=== PATIENT | female | born 1935 | race Caucasian/White ===

== ENCOUNTER 2017-05-20 12:27 | Emergency (ER) | payer MEDICARE | END 2017-05-20 15:40 | disposition home or self-care (01) | LOC: D.ER 12:27 | DX: S42.202A Unspecified fracture of upper end of left humerus, initial encounter for closed fracture (principal); W10.9XXA Fall (on) (from) unspecified stairs and steps, initial encounter; Y93.89 Activity, other specified; Y92.019 Unspecified place in single-family (private) house as the place of occurrence of the external cause; I10 Essential (primary) hypertension ==

== ENCOUNTER 2017-05-27 18:09 | Inpatient (IN) | payer MEDICARE ==
--- NOTE | ~2017-05-27 | OP ---
PATIENT NAME: NICOLE PEREYRA MEDICAL RECORD: [id number] :37 LOCATION:[facility][id number] ADMISSION DATE:05/27/17 SURGEON: CELESTINE GUAJARDO MD DATE OF OPERATION: 05/31/2017 PREOPERATIVE DIAGNOSIS: Intertrochanteric hip fracture of the right hip. POSTOPERATIVE DIAGNOSIS: Intertrochanteric hip fracture of the right hip. PROCEDURE: Gamma nail of the right hip with cephalomedullary fixation. SURGEON: Celestine Guajardo MD ANESTHESIA: General. INTRAOPERATIVE COMPLICATIONS: None. SUMMARY OF PATHOLOGIC FINDINGS: The patient did have a substantial fracture with transverse obliquity of the greater trochanter. OPERATIVE SUMMARY IN DETAIL: After obtaining the appropriate preoperative orthopedic surgery consent as well as anesthetic consultation, evaluation, and clearance, the patient was brought to the operating room and placed on the table in supine position. After general laryngeal mask airway was administered, the patient was gently placed on the fracture table. The right leg was placed in traction boot. Left leg was placed in the well leg alva. She was held firmly to the operating table using the belt and strap system. Under direct fluoroscopy, the hip was reduced. The hip was then prepped and draped in a routine sterile fashion. Incision was made at the tip of the greater trochanter. Awl was introduced for passage of the ball-tipped guidewire. Proximal reaming was then followed by nail insertion to the appropriate level. The guidepin was then placed in low-center position on AP and lateral planes. Under fluoroscopy, appropriate reaming was then followed by insertion of the compression screw. Screw was placed within 5 mm of the articular surface. The locking screw was deployed and then retracted two and a half times to allow for compression. The fracture was then compressed using the compression device. Following this, distal interlocking was done under fluoroscopic guidance. After distal interlocking was done, final radiographs were taken in AP and lateral planes and submitted for radiologist review. Wounds were copiously irrigated and closed in usual fashion. The patient was awakened and taken to recovery room in stable condition. All final needle and sponge counts were correct. TRANSINT:[id number] Voice Confirmation ID: [id number] DOCUMENT ID: [id number] CELESTINE GUAJARDO MD at 0826 CC: [id number] DICTATION DATE: 06/03/17 1250 RN TRANSITION: 06/03/17 192 DIS IN 06/01/17 [facility] [address] [facility]
[2017-05-27 19:00] LABS: BASOPHILS 0.1 % (0-2); EOSINOPHILS 1.5 % (0-7); HEMATOCRIT 43.5 % (36.0-48.0); HEMOGLOBIN 13.9 g/dL (12-16); IMMATURE GRANULOCYTES 0.3 % (0-5); LYMPHOCYTES 16.1 % (15-50); MCH 28.2 pg (26.0-34.0); MCV 88.2 fL (80.0-100.0); MEAN PLATELET VOLUME 9.1 fL (7.4-10.4); MONOCYTES 9.6 % (2-11); NEUTROPHILS 72.4 % (40-80); PLATELET COUNT 219 10x3/uL (130-400); RBC 4.93 10x6/uL (4.00-5.40); RDW 13.9 % (11.5-14.5); WBC 8.7 10x3/uL (4.8-10.8)
[2017-05-27 19:01] LABS: APPEARANCE HAZY (CLEAR); BILIRUBIN NEGATIVE (NEGATIVE); COLOR DK YELLOW (YELLOW); GLUCOSE NEGATIVE (NEGATIVE); KETONE NEGATIVE (NEGATIVE); NITRITE POSITIVE (NEGATIVE); PROTEIN TRACE mg/dL (NEGATIVE)
[2017-05-27 19:10] LABS: AMORPHOUS SEDIMENT <1+ /lpf (NONE SEEN); BACTERIA MANY /hpf (NONE SEEN); EPITHELIAL CELLS 0-5 /hpf (0-5); RED CELLS - URINE 0-5 /hpf (0-5); WHITE CELLS - URINE 0-5 /hpf (0-5)
[2017-05-27 19:15] LABS: INR 0.89 (0.85-1.17); PROTIME 11.7 SECONDS (11.6-15.0)
[2017-05-27 19:25] LABS: ALBUMIN 3.3 g/dL (3.4-5.0); ANION GAP 15.5 mmol/L (8-16); BILIRUBIN - TOTAL 0.5 mg/dL (0.2-1.3); CARBON DIOXIDE 26.1 mmol/L (21.0-32.0); CREATININE - SERUM 1.1 mg/dL (0.6-1.3); MAGNESIUM - SERUM 2.3 mg/dL (1.8-2.4); POTASSIUM - SERUM 4.6 mmol/L (3.5-5.1); PROTEIN - SERUM 7.1 g/dL (6.4-8.2)
[2017-05-27 23:08] VITALS: BP 124/65; BMI 27.5
[2017-05-28 00:40] VITALS: BP 124/65
[2017-05-28 04:25] LABS: BASOPHILS 0.1 % (0-2); EOSINOPHILS 0.1 % (0-7); HEMATOCRIT 39.6 % (36.0-48.0); HEMOGLOBIN 12.4 g/dL (12-16); IMMATURE GRANULOCYTES 0.5 % (0-5); LYMPHOCYTES 10.5 % (15-50); MCH 28.1 pg (26.0-34.0); MCHC 31.3 g/dL (31.0-37.0); MCV 89.6 fL (80.0-100.0); MEAN PLATELET VOLUME 9.3 fL (7.4-10.4); MONOCYTES 7.6 % (2-11); NEUTROPHILS 81.2 % (40-80); PLATELET COUNT 231 10x3/uL (130-400); RBC 4.42 10x6/uL (4.00-5.40)
[2017-05-28 04:27] LABS: WBC 11.1 10x3/uL (4.8-10.8)
[2017-05-28 04:50] VITALS: BP 162/83
[2017-05-28 04:50] LABS: ALBUMIN 3.1 g/dL (3.4-5.0); ANION GAP 15.1 mmol/L (8-16); BILIRUBIN - TOTAL 0.4 mg/dL (0.2-1.3); CALCIUM 8.2 mg/dL (8.5-10.1); CARBON DIOXIDE 24.6 mmol/L (21.0-32.0); POTASSIUM - SERUM 4.7 mmol/L (3.5-5.1)
[2017-05-28 04:54] LABS: CREATININE - SERUM 0.8 mg/dL (0.6-1.3)
[2017-05-28 08:19] VITALS: BP 130/78; BP 173/64
[2017-05-28] MEDS ORDERED: MIDAMOR5 MG PO (09:40)
[2017-05-28] MEDS ORDERED: PRINIVIL20 MG (09:41)
[2017-05-28] MEDS ORDERED: NORVASC5 MG PO (09:42)
[2017-05-28 12:54] VITALS: BP 137/95
[2017-05-28 14:09] VITALS: BMI 27.4
[2017-05-28 16:31] VITALS: BMI 27.4
[2017-05-28 18:42] VITALS: BP 171/91
[2017-05-28 20:00] VITALS: BP 163/87
[2017-05-29] VITALS (8 sets, daily range): BP systolic 138–198; BP diastolic 56–101
[2017-05-29 06:11] LABS: HEMATOCRIT 32.2 % (36.0-48.0); HEMOGLOBIN 10.1 g/dL (12-16); MCH 28.1 pg (26.0-34.0); MCHC 31.4 g/dL (31.0-37.0); MCV 89.7 fL (80.0-100.0); MEAN PLATELET VOLUME 10.2 fL (7.4-10.4); RBC 3.59 10x6/uL (4.00-5.40); RDW 13.9 % (11.5-14.5)
[2017-05-29 06:14] LABS: WBC 8.2 10x3/uL (4.8-10.8)
[2017-05-30 04:00] VITALS: BP 147/71
[2017-05-30 04:44] LABS: HEMATOCRIT 30.9 % (36.0-48.0); HEMOGLOBIN 9.6 g/dL (12-16); MCH 27.6 pg (26.0-34.0); MCHC 31.1 g/dL (31.0-37.0); MCV 88.8 fL (80.0-100.0); MEAN PLATELET VOLUME 9.2 fL (7.4-10.4); RBC 3.48 10x6/uL (4.00-5.40)
[2017-05-30 08:00] VITALS: BP 153/78
[2017-05-30 12:09] VITALS: BP 143/101
[2017-05-30 16:50] VITALS: BP 151/75
[2017-05-30 20:00] VITALS: BP 152/69
[2017-05-31] VITALS: BP 159/76
[2017-05-31 04:00] VITALS: BP 141/74
[2017-05-31 08:08] VITALS: BP 135/59
[2017-05-31] MEDS ORDERED: HYDROCODONE-APA1 TAB PO (08:09)
[2017-05-31] MEDS ORDERED: ELIQUIS2.5 MG PO (08:09)
[2017-05-31 08:43] LABS: HEMATOCRIT 29.3 % (36.0-48.0); HEMOGLOBIN 9.4 g/dL (12-16)
[2017-05-31 11:43] VITALS: BP 141/69
[2017-05-31 15:41] VITALS: BP 148/73
[2017-05-31 20:00] VITALS: BP 145/76
[2017-06-01] VITALS: BP 136/60
[2017-06-01 04:00] VITALS: BP 174/79
[2017-06-01 05:39] LABS: HEMATOCRIT 28.4 % (36.0-48.0); HEMOGLOBIN 8.8 g/dL (12-16); MCH 27.5 pg (26.0-34.0); MCV 88.8 fL (80.0-100.0); MEAN PLATELET VOLUME 9.1 fL (7.4-10.4); RBC 3.2 10x6/uL (4.00-5.40); RDW 13.9 % (11.5-14.5); WBC 8.2 10x3/uL (4.8-10.8)
[2017-06-01 06:00] LABS: CALC OSMOLALITY 276 mosm/kg (275-300); CALCIUM 7.8 mg/dL (8.5-10.1); CARBON DIOXIDE 20.2 mmol/L (21.0-32.0); CHLORIDE - SERUM 108 mmol/L (98-107); CREATININE - SERUM 0.5 mg/dL (0.6-1.3); POTASSIUM - SERUM 3.9 mmol/L (3.5-5.1); SODIUM 139 mmol/L (136-145); UREA NITROGEN 11 mg/dL (7-18); eGFR NON AFRICAN AMERICAN > 90 mL/min (90-120)
[2017-06-01 06:02] LABS: GLUCOSE 95 mg/dL (74-106)
[2017-06-01 08:12] VITALS: BP 178/89
[2017-06-01 12:30] VITALS: BP 125/79; BP 165/70
[2017-06-01 15:58] VITALS: BP 189/68
== END 2017-06-01 17:00 | DRG 481 ==
LOC: D.ER 18:09 → D.MS 20:14
PROVIDERS: Family Medicine; Nurse Practitioner Family; Orthopaedic Surgery
PROC: 0QS634Z Reposition Right Upper Femur with Internal Fixation Device, Percutaneous Approach (ICD-10-PCS; principal; 2017-05-28 15:00)
DX: S72.141A Displaced intertrochanteric fracture of right femur, initial encounter for closed fracture (principal); N39.0 Urinary tract infection, site not specified; D62 Acute posthemorrhagic anemia; S42.202D Unspecified fracture of upper end of left humerus, subsequent encounter for fracture with routine healing; W18.30XA Fall on same level, unspecified, initial encounter; J44.9 Chronic obstructive pulmonary disease, unspecified; I10 Essential (primary) hypertension; B96.1 Klebsiella pneumoniae [K. pneumoniae] as the cause of diseases classified elsewhere

== ENCOUNTER 2017-12-14 16:46 | Inpatient (IN) | payer MEDICARE ==
[~2017-12-14] VITALS: Ht 162.6 cm; Wt 68.0 kg
--- NOTE | ~2017-12-14 | OP ---
PATIENT NAME: NICOLE PEREYRA MEDICAL RECORD: [id number] :37 LOCATION:[id number] ADMISSION DATE:12/14/17 SURGEON: CELESTINE GUAJARDO MD DATE OF OPERATION: 12/17/2017 PREOPERATIVE DIAGNOSES: Right shoulder fracture dislocation, left transverse patellar fracture. POSTOPERATIVE DIAGNOSES: Right shoulder fracture dislocation, left transverse patellar fracture. PROCEDURES: 1. Right shoulder hemiarthroplasty: 2. ORIF of the left patella. SURGEON: Celestine Guajardo MD ANESTHESIA: General. INTRAOPERATIVE COMPLICATIONS: None. SUMMARY OF PATHOLOGIC FINDINGS: Essentially upon approaching the patient's shoulder while dissecting down, the patient's shoulder initially appeared to be one that would be fixable using operative intervention using internal plating. The plate was then placed and I felt like the reduction needed to be more improved based on the x-rays. Further dissection then revealed that the patient's articular surface was actually protruding through the lateral aspect between the greater and lesser tuberosities while not originally appreciated on x-ray. It became obvious that the patient could not have internal fixation with this degree of displacement. At this point, the humeral head was removed. The tuberosities of both greater and lesser were then controlled with #2 Ethibond, gently opened and all bony fragments were removed from the cavity of the glenohumeral joint. No cutting was needed. At this point, serial and sequential broaching were done and then a size 9 x 130 Aequalis fracture stem was cemented into place at the appropriate depth given that the medial calcar of the shoulder was still in place. It is of note that the patient's humeral head was used for bone graft into the posterior bone graft window of the allograft fracture stem. Once the cement was allowed to harden in the appropriate version the shoulder was reduced nicely. The greater and lesser tuberosities were then reapproximated about the implant, incorporating the implant as well as incorporating the humeral shaft into the construct prior to final suture tightening. More graft was then placed back into the area beneath the tuberosities around the implant. Final suture tightening resulted in excellent reapproximation of the tuberosities. Fluoroscopy was then utilized to verify this. All of the tuberosities were reduced in the appropriate position at the time of closure. Having completed this, the wound was irrigated and closed with #1 Vicryl followed by 2-0 Vicryl and skin tamie. Sterile dressings were applied to this. The patient was then returned from a beach chair position to a more supine position. Left lower extremity was then prepped and draped in a routine sterile fashion. Leg was elevated, exsanguinated and tourniquet was inflated to 350 mmHg. Midline incision was taken down to the fracture, it was then completely cleaned of all fracture hematoma and periosteum. Fracture was then held reduced with a large reduction forceps and this was seen under fluoroscopic visualization. Three guidewires for the 4.0 compression screws from [employer] were then placed, one on either side and one centrally, all other OPERATIVE REPORT [id number] NICOLE PEREYRA parallel plane at the equator. The screws were then put into place, resulted in anatomic buddhism of the patient's patellar fracture, both on the articular and nonarticular aspect. Final radiographs were taken and submitted for radiologist review. The wound was copiously irrigated. The retinaculum was reapproximated with #1 Vicryl. This was followed by 2-0 Vicryl and skin tamie for final skin closure. Sterile dressings were applied here. Tourniquet was deflated. The patient was awakened, taken to recovery room in stable condition. All final needle and sponge counts were correct. TRANSINT:[id number] Voice Confirmation ID: [id number] DOCUMENT ID: [id number] BENNETT ROB, CELESTINE BAIN at 0724 CC: [id number] DICTATION DATE: 12/21/17 0857 MANAGER MATERIAL: 12/21/17 0952 [facility] [place] [id number] [place] [address]
[~2017-12-14 16:46] MED LIST: ELIQUIS2.5 MG PO; HYDROCODONE-APA1 TAB PO; MIDAMOR5 MG PO; NORVASC5 MG PO; PRINIVIL20 MG
[2017-12-14] MEDS ORDERED: ULTRAM50 MG PO (17:40)
[2017-12-14] MEDS ORDERED: ATIVAN0.5 MG PO (17:41)
[2017-12-14 19:25] LABS: BASOPHILS 0.1 % (0-2); EOSINOPHILS 0 % (0-7); HEMATOCRIT 38.1 % (36.0-48.0); HEMOGLOBIN 12.4 g/dL (12-16); IMMATURE GRANULOCYTES 0.3 % (0-5); LYMPHOCYTES 7.2 % (15-50); MCH 27.9 pg (26.0-34.0); MCHC 32.5 g/dL (31.0-37.0); MCV 85.8 fL (80.0-100.0); MEAN PLATELET VOLUME 9.5 fL (7.4-10.4); MONOCYTES 6.5 % (2-11); NEUTROPHILS 85.9 % (40-80); RBC 4.44 10x6/uL (4.00-5.40); WBC 13.5 10x3/uL (4.8-10.8)
[2017-12-14 19:30] LABS: PLATELET COUNT 198 10x3/uL (130-400)
[2017-12-14 19:56] LABS: INR 0.98 (0.85-1.17); PROTIME 12.6 SECONDS (11.6-15.0)
[2017-12-14 20:12] LABS: ALBUMIN 3.3 g/dL (3.4-5.0); ALKALINE PHOSPHATASE 97 U/L (46-116); ALT (SGPT) 16 U/L (10-68); BILIRUBIN - TOTAL 0.87 mg/dL (0.2-1.3); C-REACTIVE PROTEIN 10.3 mg/dL (0.0-0.9); CALC OSMOLALITY 279 mosm/kg (275-300); CALCIUM 8.4 mg/dL (8.5-10.1); CHLORIDE - SERUM 102 mmol/L (98-107); CREATININE - SERUM 0.7 mg/dL (0.6-1.3); GLUCOSE 148 mg/dL (74-106); POTASSIUM - SERUM 4.3 mmol/L (3.5-5.1); PROTEIN - SERUM 7.4 g/dL (6.4-8.2); SODIUM 138 mmol/L (136-145); UREA NITROGEN 15 mg/dL (7-18); eGFR NON AFRICAN AMERICAN 85 mL/min (90-120)
[2017-12-14 20:45] LABS: APPEARANCE HAZY (CLEAR); BACTERIA MANY /hpf (NONE SEEN); BILIRUBIN NEGATIVE (NEGATIVE); COLOR DK YELLOW (YELLOW); EPITHELIAL CELLS 0-5 /hpf (0-5); GLUCOSE NEGATIVE (NEGATIVE); KETONE NEGATIVE (NEGATIVE); NITRITE POSITIVE (NEGATIVE); PROTEIN TRACE mg/dL (NEGATIVE); RED CELLS - URINE OCC /hpf (0-5); SPECIFIC GRAVITY 1.015 (1.005-1.020); UROBILINOGEN NORMAL (NORMAL); WHITE CELLS - URINE 0-5 /hpf (0-5)
[2017-12-15 00:52] VITALS: BP 155/83; BMI 25.8
[2017-12-15 04:00] VITALS: BP 156/81
[2017-12-15 10:27] VITALS: BP 150/70
[2017-12-15 12:31] VITALS: BP 140/70
[2017-12-15 14:25] VITALS: BMI 25.7
[2017-12-15 16:11] VITALS: BP 143/73
[2017-12-15 20:00] VITALS: BP 113/63
[2017-12-16] VITALS: BP 133/72
[2017-12-16 04:00] VITALS: BP 153/79
[2017-12-16 08:28] VITALS: BP 139/77
[2017-12-16 11:31] VITALS: BP 122/65
[2017-12-16 13:14] VITALS: Ht 162.6 cm; Wt 68.0 kg
[2017-12-16 16:29] VITALS: BP 138/60
[2017-12-16 21:07] VITALS: BP 144/69
[2017-12-17 05:09] VITALS: BP 141/69
[2017-12-17 08:33] LABS: HEMATOCRIT 35.1 % (36.0-48.0); HEMOGLOBIN 11.5 g/dL (12-16); MCH 28.2 pg (26.0-34.0); MCHC 32.8 g/dL (31.0-37.0); MEAN PLATELET VOLUME 9.3 fL (7.4-10.4); RBC 4.08 10x6/uL (4.00-5.40); RDW 14.6 % (11.5-14.5)
[2017-12-17 08:40] LABS: CALC OSMOLALITY 273 mosm/kg (275-300); CALCIUM 7.8 mg/dL (8.5-10.1); CARBON DIOXIDE 25.4 mmol/L (21.0-32.0); CHLORIDE - SERUM 104 mmol/L (98-107); CREATININE - SERUM 0.6 mg/dL (0.6-1.3); POTASSIUM - SERUM 3.8 mmol/L (3.5-5.1); SODIUM 138 mmol/L (136-145); UREA NITROGEN 8 mg/dL (7-18); eGFR NON AFRICAN AMERICAN > 90 mL/min (90-120)
[2017-12-17 08:41] LABS: GLUCOSE 95 mg/dL (74-106)
[2017-12-17 08:45] VITALS: BP 134/77
[2017-12-17 13:21] VITALS: BP 122/66
[2017-12-17 18:41] VITALS: BP 129/70
[2017-12-17 21:01] VITALS: BP 124/67
[2017-12-18] VITALS (8 sets, daily range): BP systolic 123–160; BP diastolic 61–80
[2017-12-18 06:26] LABS: BASOPHILS 0.2 % (0-2); EOSINOPHILS 0.7 % (0-7); HEMATOCRIT 32.2 % (36.0-48.0); HEMOGLOBIN 10.5 g/dL (12-16); IMMATURE GRANULOCYTES 0.4 % (0-5); LYMPHOCYTES 10.2 % (15-50); MCH 28.5 pg (26.0-34.0); MCHC 32.6 g/dL (31.0-37.0); MCV 87.3 fL (80.0-100.0); MEAN PLATELET VOLUME 10.1 fL (7.4-10.4); MONOCYTES 10.9 % (2-11); NEUTROPHILS 77.6 % (40-80); PLATELET COUNT 187 10x3/uL (130-400); RBC 3.69 10x6/uL (4.00-5.40); RDW 14.6 % (11.5-14.5); WBC 10.2 10x3/uL (4.8-10.8)
[2017-12-18 06:53] LABS: ALBUMIN 2.2 g/dL (3.4-5.0); ALKALINE PHOSPHATASE 68 U/L (46-116); ALT (SGPT) 11 U/L (10-68); BILIRUBIN - TOTAL 0.51 mg/dL (0.2-1.3); CALC OSMOLALITY 266 mosm/kg (275-300); CALCIUM 7.4 mg/dL (8.5-10.1); CARBON DIOXIDE 21.2 mmol/L (21.0-32.0); CHLORIDE - SERUM 100 mmol/L (98-107); CREATININE - SERUM 0.5 mg/dL (0.6-1.3); GLUCOSE 126 mg/dL (74-106); PROTEIN - SERUM 5.4 g/dL (6.4-8.2); SODIUM 133 mmol/L (136-145); UREA NITROGEN 9 mg/dL (7-18); eGFR NON AFRICAN AMERICAN > 90 mL/min (90-120)
[2017-12-18 06:56] LABS: POTASSIUM - SERUM 4.5 mmol/L (3.5-5.1)
[2017-12-19 05:07] VITALS: BP 134/64
[2017-12-19 05:09] LABS: BASOPHILS 0.2 % (0-2); EOSINOPHILS 1.2 % (0-7); HEMATOCRIT 29.1 % (36.0-48.0); HEMOGLOBIN 9.4 g/dL (12-16); IMMATURE GRANULOCYTES 0.3 % (0-5); LYMPHOCYTES 12.6 % (15-50); MCH 27.5 pg (26.0-34.0); MCHC 32.3 g/dL (31.0-37.0); MEAN PLATELET VOLUME 9.1 fL (7.4-10.4); MONOCYTES 11.2 % (2-11); NEUTROPHILS 74.5 % (40-80); PLATELET COUNT 223 10x3/uL (130-400); RBC 3.42 10x6/uL (4.00-5.40); RDW 14.3 % (11.5-14.5); WBC 10.7 10x3/uL (4.8-10.8)
[2017-12-19 05:21] LABS: MCV 85.1 fL (80.0-100.0)
[2017-12-19 05:44] LABS: ALBUMIN 1.9 g/dL (3.4-5.0); ALKALINE PHOSPHATASE 65 U/L (46-116); ALT (SGPT) 12 U/L (10-68); BILIRUBIN - TOTAL 0.46 mg/dL (0.2-1.3); CALC OSMOLALITY 267 mosm/kg (275-300); CALCIUM 8.1 mg/dL (8.5-10.1); CARBON DIOXIDE 23.5 mmol/L (21.0-32.0); CHLORIDE - SERUM 100 mmol/L (98-107); GLUCOSE 119 mg/dL (74-106); POTASSIUM - SERUM 3.9 mmol/L (3.5-5.1); PROTEIN - SERUM 5.8 g/dL (6.4-8.2); SODIUM 134 mmol/L (136-145); UREA NITROGEN 10 mg/dL (7-18)
[2017-12-19 05:50] LABS: CREATININE - SERUM 0.7 mg/dL (0.6-1.3); eGFR NON AFRICAN AMERICAN 85 mL/min (90-120)
[2017-12-19 08:48] VITALS: BP 111/61
[2017-12-19 12:10] VITALS: BP 130/60
[2017-12-19 16:57] VITALS: BP 142/67
[2017-12-19 21:11] VITALS: BP 103/58
[2017-12-19 23:18] VITALS: BP 103/58
[2017-12-20 06:26] VITALS: BP 114/52
[2017-12-20 06:37] LABS: BASOPHILS 0.2 % (0-2); HEMATOCRIT 31.6 % (36.0-48.0); IMMATURE GRANULOCYTES 0.4 % (0-5); LYMPHOCYTES 13.4 % (15-50); MCH 27.5 pg (26.0-34.0); MCHC 31.6 g/dL (31.0-37.0); MCV 86.8 fL (80.0-100.0); MEAN PLATELET VOLUME 9.6 fL (7.4-10.4); MONOCYTES 8.9 % (2-11); NEUTROPHILS 74.1 % (40-80); PLATELET COUNT 245 10x3/uL (130-400); RBC 3.64 10x6/uL (4.00-5.40); RDW 14.4 % (11.5-14.5); WBC 9.5 10x3/uL (4.8-10.8)
[2017-12-20 07:35] LABS: ALKALINE PHOSPHATASE 94 U/L (46-116); BILIRUBIN - TOTAL 0.54 mg/dL (0.2-1.3); CALCIUM 8.3 mg/dL (8.5-10.1); CARBON DIOXIDE 19.3 mmol/L (21.0-32.0); CHLORIDE - SERUM 101 mmol/L (98-107); GLUCOSE 77 mg/dL (74-106); PROTEIN - SERUM 5.6 g/dL (6.4-8.2); SODIUM 134 mmol/L (136-145)
[2017-12-20 07:37] LABS: ALT (SGPT) 21 U/L (10-68); CALC OSMOLALITY 267 mosm/kg (275-300); CREATININE - SERUM 0.5 mg/dL (0.6-1.3); POTASSIUM - SERUM 4.6 mmol/L (3.5-5.1); UREA NITROGEN 14 mg/dL (7-18); eGFR NON AFRICAN AMERICAN > 90 mL/min (90-120)
[2017-12-20 08:45] VITALS: BP 111/63
[2017-12-20 12:44] VITALS: BP 107/75
[2017-12-20 16:46] VITALS: BP 107/53
[2017-12-20 23:12] VITALS: BP 110/52
[2017-12-21 04:44] VITALS: BP 113/58
[2017-12-21 04:52] LABS: BASOPHILS 0.3 % (0-2); EOSINOPHILS 4.2 % (0-7); HEMATOCRIT 28.4 % (36.0-48.0); HEMOGLOBIN 8.9 g/dL (12-16); IMMATURE GRANULOCYTES 0.6 % (0-5); LYMPHOCYTES 14.2 % (15-50); MCHC 31.3 g/dL (31.0-37.0); MCV 86.1 fL (80.0-100.0); MEAN PLATELET VOLUME 8.9 fL (7.4-10.4); MONOCYTES 8.7 % (2-11); PLATELET COUNT 262 10x3/uL (130-400); RDW 14.4 % (11.5-14.5); WBC 7.9 10x3/uL (4.8-10.8)
[2017-12-21 05:13] LABS: ALBUMIN 1.9 g/dL (3.4-5.0); ALKALINE PHOSPHATASE 85 U/L (46-116); BILIRUBIN - TOTAL 0.47 mg/dL (0.2-1.3); CALC OSMOLALITY 274 mosm/kg (275-300); CALCIUM 8.2 mg/dL (8.5-10.1); CHLORIDE - SERUM 104 mmol/L (98-107); CREATININE - SERUM 0.6 mg/dL (0.6-1.3); GLUCOSE 98 mg/dL (74-106); PROTEIN - SERUM 5.9 g/dL (6.4-8.2); SODIUM 137 mmol/L (136-145); UREA NITROGEN 14 mg/dL (7-18); eGFR NON AFRICAN AMERICAN > 90 mL/min (90-120)
[2017-12-21 05:20] LABS: ALT (SGPT) 27 U/L (10-68); CARBON DIOXIDE 24.5 mmol/L (21.0-32.0); POTASSIUM - SERUM 3.9 mmol/L (3.5-5.1)
[2017-12-21 08:36] VITALS: BP 117/61
[2017-12-21 12:07] VITALS: BP 134/69
[2017-12-21] MEDS ORDERED: ELIQUIS2.5 MG PO (12:24)
[2017-12-21] MEDS ORDERED: MACROBID100 MG PO (12:24)
[2017-12-21 22:28] VITALS: BP 125/70
[2017-12-22 04:59] VITALS: BP 140/66
[2017-12-22 05:23] LABS: BASOPHILS 0.5 % (0-2); EOSINOPHILS 5.1 % (0-7); HEMOGLOBIN 9.2 g/dL (12-16); IMMATURE GRANULOCYTES 0.8 % (0-5); LYMPHOCYTES 22.3 % (15-50); MCH 27.6 pg (26.0-34.0); MCHC 31.7 g/dL (31.0-37.0); MCV 87.1 fL (80.0-100.0); MEAN PLATELET VOLUME 8.7 fL (7.4-10.4); MONOCYTES 9.5 % (2-11); NEUTROPHILS 61.8 % (40-80); PLATELET COUNT 311 10x3/uL (130-400); RBC 3.33 10x6/uL (4.00-5.40); RDW 14.5 % (11.5-14.5); WBC 8.4 10x3/uL (4.8-10.8)
[2017-12-22 05:50] LABS: ALBUMIN 1.9 g/dL (3.4-5.0); ALKALINE PHOSPHATASE 89 U/L (46-116); ALT (SGPT) 31 U/L (10-68); BILIRUBIN - TOTAL 0.42 mg/dL (0.2-1.3); CALC OSMOLALITY 276 mosm/kg (275-300); CALCIUM 8.6 mg/dL (8.5-10.1); CARBON DIOXIDE 28.8 mmol/L (21.0-32.0); CHLORIDE - SERUM 103 mmol/L (98-107); CREATININE - SERUM 0.7 mg/dL (0.6-1.3); GLUCOSE 105 mg/dL (74-106); POTASSIUM - SERUM 3.8 mmol/L (3.5-5.1); SODIUM 139 mmol/L (136-145); UREA NITROGEN 10 mg/dL (7-18); eGFR NON AFRICAN AMERICAN 85 mL/min (90-120)
[2017-12-22 07:03] VITALS: BP 117/58
[2017-12-22 20:27] VITALS: BP 117/57
[2017-12-23 01:03] VITALS: BP 124/60
[2017-12-23 04:59] VITALS: BP 134/64
[2017-12-23 05:51] LABS: BASOPHILS 0.4 % (0-2); EOSINOPHILS 4.5 % (0-7); IMMATURE GRANULOCYTES 0.7 % (0-5); LYMPHOCYTES 21.9 % (15-50); MCH 27.1 pg (26.0-34.0); MCV 87.3 fL (80.0-100.0); MEAN PLATELET VOLUME 8.7 fL (7.4-10.4); MONOCYTES 8.7 % (2-11); NEUTROPHILS 63.8 % (40-80); PLATELET COUNT 322 10x3/uL (130-400); RBC 3.32 10x6/uL (4.00-5.40); RDW 14.4 % (11.5-14.5); WBC 8.2 10x3/uL (4.8-10.8)
[2017-12-23 06:31] LABS: ALKALINE PHOSPHATASE 81 U/L (46-116); ALT (SGPT) 27 U/L (10-68); BILIRUBIN - TOTAL 0.38 mg/dL (0.2-1.3); CALC OSMOLALITY 279 mosm/kg (275-300); CALCIUM 8.5 mg/dL (8.5-10.1); CARBON DIOXIDE 28.3 mmol/L (21.0-32.0); CHLORIDE - SERUM 103 mmol/L (98-107); CREATININE - SERUM 0.7 mg/dL (0.6-1.3); GLUCOSE 91 mg/dL (74-106); POTASSIUM - SERUM 3.7 mmol/L (3.5-5.1); SODIUM 141 mmol/L (136-145); UREA NITROGEN 9 mg/dL (7-18); eGFR NON AFRICAN AMERICAN 85 mL/min (90-120)
[2017-12-23 09:41] VITALS: BP 133/75
[2017-12-23 15:53] VITALS: BP 103/50
[2017-12-23 20:05] VITALS: BP 145/74
[2017-12-24 03:43] VITALS: BP 146/64
[2017-12-24 04:58] LABS: BASOPHILS 0.2 % (0-2); EOSINOPHILS 3.7 % (0-7); HEMATOCRIT 30.1 % (36.0-48.0); HEMOGLOBIN 9.3 g/dL (12-16); IMMATURE GRANULOCYTES 0.9 % (0-5); LYMPHOCYTES 22.7 % (15-50); MCHC 30.9 g/dL (31.0-37.0); MCV 87.5 fL (80.0-100.0); MEAN PLATELET VOLUME 8.5 fL (7.4-10.4); MONOCYTES 8.1 % (2-11); NEUTROPHILS 64.4 % (40-80); PLATELET COUNT 379 10x3/uL (130-400); RBC 3.44 10x6/uL (4.00-5.40); RDW 14.5 % (11.5-14.5); WBC 8.1 10x3/uL (4.8-10.8)
[2017-12-24 05:05] LABS: ALBUMIN 2.2 g/dL (3.4-5.0); ALKALINE PHOSPHATASE 84 U/L (46-116); ALT (SGPT) 22 U/L (10-68); BILIRUBIN - TOTAL 0.38 mg/dL (0.2-1.3); CALC OSMOLALITY 277 mosm/kg (275-300); CALCIUM 8.8 mg/dL (8.5-10.1); CARBON DIOXIDE 28.8 mmol/L (21.0-32.0); CHLORIDE - SERUM 103 mmol/L (98-107); CREATININE - SERUM 0.6 mg/dL (0.6-1.3); GLUCOSE 99 mg/dL (74-106); PROTEIN - SERUM 6.3 g/dL (6.4-8.2); SODIUM 140 mmol/L (136-145); UREA NITROGEN 9 mg/dL (7-18); eGFR NON AFRICAN AMERICAN > 90 mL/min (90-120)
[2017-12-24] MEDS ORDERED: ULTRAM50 MG PO (07:20)
[2017-12-24 08:02] VITALS: BP 130/64
[2017-12-24 12:43] VITALS: BP 126/64
[2017-12-24 15:58] VITALS: BP 138/66
[2017-12-24 20:26] VITALS: BP 111/62
[2017-12-25 04:27] VITALS: BP 117/70
[2017-12-25 05:21] LABS: BASOPHILS 0.2 % (0-2); EOSINOPHILS 3.3 % (0-7); HEMATOCRIT 30.3 % (36.0-48.0); HEMOGLOBIN 9.5 g/dL (12-16); IMMATURE GRANULOCYTES 0.8 % (0-5); LYMPHOCYTES 22.6 % (15-50); MCH 27.3 pg (26.0-34.0); MCHC 31.4 g/dL (31.0-37.0); MCV 87.1 fL (80.0-100.0); MEAN PLATELET VOLUME 8.6 fL (7.4-10.4); MONOCYTES 6.4 % (2-11); NEUTROPHILS 66.7 % (40-80); PLATELET COUNT 417 10x3/uL (130-400); RBC 3.48 10x6/uL (4.00-5.40); RDW 14.5 % (11.5-14.5); WBC 8.9 10x3/uL (4.8-10.8)
[2017-12-25 05:49] LABS: ALBUMIN 2.2 g/dL (3.4-5.0); ALKALINE PHOSPHATASE 87 U/L (46-116); ALT (SGPT) 21 U/L (10-68); BILIRUBIN - TOTAL 0.31 mg/dL (0.2-1.3); CALC OSMOLALITY 279 mosm/kg (275-300); CALCIUM 8.4 mg/dL (8.5-10.1); CARBON DIOXIDE 27.4 mmol/L (21.0-32.0); CHLORIDE - SERUM 104 mmol/L (98-107); CREATININE - SERUM 0.5 mg/dL (0.6-1.3); GLUCOSE 94 mg/dL (74-106); POTASSIUM - SERUM 4.4 mmol/L (3.5-5.1); PROTEIN - SERUM 5.5 g/dL (6.4-8.2); SODIUM 141 mmol/L (136-145); UREA NITROGEN 11 mg/dL (7-18); eGFR NON AFRICAN AMERICAN > 90 mL/min (90-120)
[2017-12-25 07:52] VITALS: BP 115/64
[2017-12-25 12:34] VITALS: BP 131/71
== END 2017-12-25 14:53 | DRG 483 ==
LOC: D.ER 16:46 → D.MS 23:33
PROVIDERS: Family Medicine; Orthopaedic Surgery
PROC: 0RSJXZZ Reposition Right Shoulder Joint, External Approach (ICD-10-PCS; principal; 2017-12-14)
PROC: 0QSF04Z Reposition Left Patella with Internal Fixation Device, Open Approach (ICD-10-PCS; 2017-12-17)
PROC: 0RRJ0J6 Replacement of Right Shoulder Joint with Synthetic Substitute, Humeral Surface, Open Approach (ICD-10-PCS; 2017-12-17 13:00)
DX: S42.201A Unspecified fracture of upper end of right humerus, initial encounter for closed fracture (principal); S82.032A Displaced transverse fracture of left patella, initial encounter for closed fracture; N39.0 Urinary tract infection, site not specified; D62 Acute posthemorrhagic anemia; W19.XXXA Unspecified fall, initial encounter; S43.005A Unspecified dislocation of left shoulder joint, initial encounter; I10 Essential (primary) hypertension; J44.9 Chronic obstructive pulmonary disease, unspecified; S00.83XA Contusion of other part of head, initial encounter; Z87.891 Personal history of nicotine dependence